=== PATIENT | male | born 1965 | race Caucasian/White ===

== ENCOUNTER 2018-11-22 08:38 | Observation (INO) | payer BC ==
[~2018-11-22] VITALS: Ht 185.4 cm; Wt 128.0 kg
--- OUTSIDE RECORDS SUMMARY | 2018-11-22 08:40 | XMS REPORT | Summary of Care ---
Author Author Julian Carter M.A. Unknown Address [facility] Phone Unavailable Care Team Providers Care Loader Unloader Name Role Phone SHASTA Gilbert, LIAM Unavailable Unavailable TORIN Gilbert, PK Unavailable Unavailable SHASTA GEORGES [place], LIAM CARRILLO Unavailable Unavailable TORIN GEORGES [place], PK Tolbert Unavailable Unavailable Unavailable Unavailable Functional Status Name Dates Details Functional status health issues are not documented Status: Name Dates Details Cognitive status health issues are not documented Status: Problems Name Dates Details Persistent cough (786.2, R05) Status: Active Throat clearing (784.99, R68.89) Status: Active Allergic rhinitis (477.9, J30.9) Status: Active Diet-controlled hyperlipidemia (272.4, E78.5) Status: Active Tobacco use (305.1, Z72.0) Status: Active Myofascial pain syndrome, cervical (729.1, M79.18) Status: Active Nicotine dependence (305.1, F17.200) Status: Active Chewing tobacco use (305.1, Z72.0) Status: Active Acute stress disorder (308.3, F43.0) Status: Active Fatigue (780.79, R53.83) Status: Active Obesity (278.00, E66.9) Status: Active Colon cancer screening (V76.51, Z12.11) Status: Active Colon cancer screening (V76.51, Z12.11) Status: Active Screening for AAA (abdominal aortic aneurysm) (V81.2, Z13.6) Status: Active History of smoking 10-25 pack years (V15.82, Z87.891) Status: Active Pain of right sacroiliac joint (724.6, M53.3) Status: Active Essential hypertension (401.9, I10) Status: Active Hip pain, acute, right (719.45, M25.551) Status: Active Pain in both feet (729.5, M79.671) Status: Active Pain in both lower extremities (729.5, M79.604) Status: Active Primary osteoarthritis of right hip (715.15, M16.11) Status: Active 23-polyvalent pneumococcal polysaccharide vaccine indication of diabetes in patient 6 to 64 years of age (250.00, E11.9) Status: Active Need for pneumococcal vaccination (V03.82, Z23) Status: Active 23-polyvalent pneumococcal polysaccharide vaccine indication of diabetes in patient 6 to 64 years of age (250.00, E11.9) Status: Active Screening for prostate cancer (V76.44, Z12.5) Status: Active Osteoarthritis of knees, bilateral (715.96, M17.0) Status: Active Bilateral knee pain (719.46, M25.561) Status: Active Screening for hypothyroidism (V77.0, Z13.29) Status: Active Need for hepatitis C screening test (V73.89, Z11.59) Status: Active Controlled diabetes mellitus without complication, without long-term current use of insulin (250.00, E11.9) Status: Active Hypertension, well controlled (401.9, I10) Status: Active On statin therapy (V58.69, Z79.899) Status: Active Microscopic hematuria (599.72, R31.29) Status: Active Acute tracheitis (464.10, J04.10) Status: Active Ulcer aphthous oral (528.2, K12.0) Status: Active Acute pharyngitis due to other specified organisms (462, J02.8) Status: Active RAD (reactive airway disease) (493.90, J45.909) Status: Active Hematuria (599.70, R31.9) Status: Active Flu vaccine need (V04.81, Z23) Status: Active Other hyperlipidemia (272.4, E78.49) Status: Active Morbid obesity with BMI of 40.0-44.9, adult (278.01, E66.01) Status: Active Encounter for diabetic foot exam (250.00, E11.9) Status: Active Chronic pain of right hip (719.45, M25.551) Status: Active Limb pain (729.5, M79.609) Status: Active Acute sinusitis (461.9, J01.90) Status: Active Diabetes mellitus (250.00, E11.9) Status: Active Uncontrolled hypertension (401.9, I10) Status: Active Need for influenza vaccination (V04.81, Z23) Status: Active Encounter for monitoring statin therapy (V58.83, Z51.81) Status: Active BMI 40.0-44.9, adult (V85.41, Z68.41) Status: Active At risk for coronary artery disease (V49.89, Z91.89) Status: Active GERD (gastroesophageal reflux disease) (530.81, K21.9) Status: Active Medications Name Dates Details MetFORMIN HCl ER 500 MG Oral Tablet Extended Release 24 Hour TAKE 2 TABLET TWICE DAILY Quantity: 360 LIAM VEGAS M.D. Active Losartan Potassium 100 MG Oral Tablet TAKE ONE TABLET BY MOUTH ONCE DAILY * Quantity: 90 Refills: 2 LIAM VEGAS M.D. * Start : 04-Aug-2018 Active Nasacort Allergy 24HR 55 MCG/ACT Nasal Aerosol 1 SPRAY TO EACH NOSTRIL BID. * Quantity: 1 Refills: 2 LIAM VEGAS M.D. * Start : 21-Dec-2014 Active 16.9 ML Bottle Atorvastatin Calcium 10 MG Oral Tablet TAKE 1 TABLET DAILY. * Quantity: 90 Refills: 2 LIAM VEGAS M.D. * Start : 20-Jul-2015 Active Glimepiride 2 MG Oral Tablet take one tablet twice a day * Quantity: 180 Refills: 2 LIAM VEGAS M.D. * Start : 20-Jul-2015 Active Gabapentin 300 MG Oral Capsule TAKE 1 CAPSULE 3 TIMES DAILY * Quantity: 270 Refills: 1 LIAM VEGAS M.D. * Start : 15-Sep-2016 Active Ventolin HFA 108 (90 Base) MCG/ACT Inhalation Aerosol Solution 2 INHALATIONS FOUR TIMES A DAY UNTIL WELL * Quantity: 1 Refills: 1 LIAM VEGAS M.D. * Start : 13-Oct-2017 Active 8 GM Inhaler AmLODIPine Besylate 2.5 MG Oral Tablet TAKE 1 TABLET DAILY * Quantity: 30 Refills: 3 ZOILA VEGAS M.D.NDA * Start : 16-Aug-2018 Active Naproxen 500 MG Oral Tablet TAKE 1 TABLET TWICE DAILY AFTER MEALS. * Quantity: 60 Refills: 1 LIAM VEGAS M.D. * Start : 19-Aug-2018 Active Esomeprazole Magnesium 40 MG Oral Capsule Delayed Release TAKE 1 CAPSULE BY MOUTH DAILY * Quantity: 30 Refills: 2 LIAM VEGAS M.D. * Start : 19-Aug-2018 Active Vimovo 500-20 MG Oral Tablet Delayed Release TAKE 1 TABLET TWICE DAILY * Refills: 0 * Start : 31-Aug-2018 Active Allergies and Adverse Reactions Name Dates Details No Known Drug Allergies (Allergy) Status: Active Past Medical History Name Dates Details History of Basal Cell Carcinoma Of Skin, Other Specified Location (173.81) Status: Resolved History of essential hypertension (V12.59, Z86.79) Status: Resolved History of Skin Cancer (V10.83) Status: Resolved History of type 2 diabetes mellitus (V12.29, Z86.39) Status: Resolved Procedures Procedure Dates Details History of Hernia Repair Completed History of Knee Surgery Right Completed Immunization Name Dates Details Tdap on: 08-Apr-2012 Influenza on: 25-Oct-2012 Fluzone INJ Lot #: [id number] on: 22-Jul-2013 Fluzone Quadrivalent 0.5 ML Intramuscular Suspension Lot #: [id number] on: 20-Jul-2015 Fluzone Quadrivalent 0.5 ML Intramuscular Suspension Lot #: [id number] on: 28-Jul-2016 Pneumococcal polysaccharide vaccine, 23 valent Lot #: [id number] on: 19-Dec-2016 Fluzone Quadrivalent 0.5 ML Intramuscular Suspension Lot #: [id number] on: 18-Sep-2017 Fluzone Quadrivalent 0.5 ML Intramuscular Suspension Lot #: [id number] on: 16-Aug-2018 Family History Name Dates Details Family history of Diabetes Mellitus (V18.0) Status: Active Family history of Hyperlipidemia Status: Active Name Dates Details Family history of Lung Cancer (V16.1) Status: Active Social History Name Dates Details - Status: Name Dates Details Former smoker Vital Signs Date Test Result Details [id number] Height 73 in Status: Weight 294 lb Status: Body Mass Index Calculated 38.79 kg/m2 Status: Body Surface Area Calculated 2.53 m2 Status: Results Date Description Value Details Results not documented Plan of Care Name Dates Details Planned Observations Planned Goals not documented Instructions Name Dates Details Instructions not documented Encounters Appointment; LIAM VEGAS M.D. Encounter Diagnosis: Problem not documented On: 19-Dec-2016 15:45 Appointment; LIAM VEGAS M.D. Encounter Diagnosis: Problem not documented On: 19-Dec-2016 15:45 Appointment; LIAM VEGAS M.D. Encounter Diagnosis: Problem not documented On: 18-Sep-2017 11:00 Appointment; LIAM VEGAS M.D. Encounter Diagnosis: Problem not documented On: 13-Oct-2017 10:00 Appointment; PK HARKINS M.D. Encounter Diagnosis: Problem not documented On: 23-Dec-2017 8:45 Appointment; PK HARKINS M.D. Encounter Diagnosis: Problem not documented On: 20-Jan-2018 9:30 Appointment; STEF PACE P.A. Encounter Diagnosis: Problem not documented On: 12-Mar-2018 15:00 Appointment; LIAM VEGAS M.D. Encounter Diagnosis: Problem not documented On: 16-Aug-2018 15:45 Appointment; PK HARKINS M.D. Encounter Diagnosis: Problem not documented On: 20-Oct-2018 13:00
[2018-11-22] MEDS ORDERED: SODIUM CHLORIDE 0.9% 1000ML 1,000 ML IV STA (09:03)
[2018-11-22] MEDS ORDERED: SODIUM CHLORIDE 0.9% 1000ML 1,000 ML ONE (09:05)
[2018-11-22] MEDS ORDERED: SODIUM CHLORIDE 0.9% 250ML 250 ML IV ONE (09:15)
[2018-11-22 09:46] LABS: BASOPHILS # (AUTO) 0.1 (0.0-0.1); EOSINOPHILS # (AUTO) 0.2 (0.0-0.4); EOSINOPHILS % 1.9 % (0.0-6.0); HEMATOCRIT 37.2 % (38.2-49.6); HEMOGLOBIN 13.3 g/dL (14.0-18.0); LYMPHOCYTES # (AUTO) 1.6 (1.0-3.2); LYMPHOCYTES % 13.4 % (18.0-39.1); MEAN CORPUSCULAR HEMOGLOBIN 31.4 pg (28-32); MEAN CORPUSCULAR HGB CONC 35.8 g/dL (31-35); MEAN CORPUSCULAR VOLUME 87.9 fL (81-99); MONOCYTES # (AUTO) 0.7 (0.2-0.8); MONOCYTES % 5.5 % (4.4-11.3); NEUTROPHILS # (AUTO) 9.3 (2.1-6.9); NEUTROPHILS % 77.9 % (38.7-80.0); PLATELET COUNT 321 x10e3/uL (140-360); RED BLOOD COUNT 4.23 x10e6/uL (4.3-5.7); RED CELL DISTRIBUTION WIDTH 12.9 % (11.7-14.4)
[2018-11-22 09:59] LABS: INR 1.04; PARTIAL THROMBOPLASTIN TIME 27.7 seconds (23.8-35.5); PROTHROMBIN TIME 14.5 seconds (11.9-14.5)
[2018-11-22 10:05] LABS: ALANINE AMINOTRANSFERASE 46 IU/L (0-55); ALBUMIN 4.2 g/dL (3.5-5.0); ALBUMIN/GLOBULIN RATIO 1.4 (0.8-2.0); ALKALINE PHOSPHATASE 64 IU/L (40-150); ANION GAP 17.9 mmol/L (8-16); BLOOD UREA NITROGEN 22 mg/dL (7-26); BUN/CREATININE RATIO 20 (6-25); CALCIUM 9.5 mg/dL (8.4-10.2); CARBON DIOXIDE 25 mmol/L (22-29); CHLORIDE 96 mmol/L (98-107); CREATINE KINASE 153 IU/L (30-200); CREATININE, SERUM 1.11 mg/dL (0.72-1.25); EST GLOMERULAR FILTRATION RATE > 60 ML/MIN (60-); GLUCOSE 171 mg/dL (74-118); POTASSIUM 3.9 mmol/L (3.5-5.1); SODIUM 135 mmol/L (136-145)
--- NOTE | 2018-11-22 10:12 | NUR ---
PT EATING CHIC FILET WHEN NURSE ENTERED ROOM; PT EDUCATED ABOUT NOT EATING UNTIL RESULTS OF ALL LABS RETURN AND CLEARS HIM TO DO SO
[2018-11-22] MEDS ORDERED: PANTOPRAZOLE 40 MG 10ML VIAL IV ONE (10:15)
[2018-11-22 12:48] VITALS: BP 123/66
--- NOTE | 2018-11-22 13:20 | NUR ---
Recvd patient from ER, AAOx3, assisted him to bed, denies any pain, as per patient he didn't have bloody diarrhoea now, not in any distress, as per ER nurse report Dr Stack aware about the consult
[2018-11-22] MEDS: SODIUM CHLORIDE 0.9% 1000ML 1,000 ML IV SCH ×2 (13:25→22:13)
[2018-11-22] MEDS ORDERED: ATORVASTATIN CA10 MG PO (14:56)
[2018-11-22] MEDS ORDERED: LOSARTAN POTAS100 MG PO (14:56)
[2018-11-22] MEDS ORDERED: GLIMEPIRIDE2 MG PO (14:56)
[2018-11-22] MEDS ORDERED: METFORMIN HCL1000 MG PO (14:56)
[2018-11-22 15:10] VITALS: BP 123/66
[2018-11-22 15:35] VITALS: BP 131/72
[2018-11-22 18:37] LABS: HEMOGLOBIN 9.9 g/dL (14.0-18.0)
[2018-11-22 20:00] VITALS: BP 117/64
--- NOTE | 2018-11-22 20:03 | NUR ---
Report was taken from previous nurse. Patient is NPO.
--- NOTE | 2018-11-22 21:00 | NUR ---
Patient refused bed alarm.
--- NOTE | 2018-11-22 21:30 | NUR ---
Talked to Dr. Humphrey about patient having hip pain and wanting medication. Dr. Humphrey ordered [place] for the pain.
[2018-11-22] MEDS: HYDROCODONE/APAP 5MG-325MG TAB PO SCH (22:04)
[2018-11-23] VITALS (8 sets, daily range): BP systolic 103–135; BP diastolic 56–73
[2018-11-23 01:20] LABS: HEMATOCRIT 29.8 % (38.2-49.6); HEMOGLOBIN 10.5 g/dL (14.0-18.0)
--- NOTE | 2018-11-23 02:32 | NUR ---
PATIENT IS ASLEEP. CALL HERRERA WITHIN REACH.
[2018-11-23 05:35] LABS: HEMATOCRIT 27.2 % (38.2-49.6); HEMOGLOBIN 9.4 g/dL (14.0-18.0)
[2018-11-23 05:51] LABS: ANION GAP 10.2 mmol/L (8-16); BLOOD UREA NITROGEN 15 mg/dL (7-26); BUN/CREATININE RATIO 18 (6-25); CALCIUM 8.2 mg/dL (8.4-10.2); CARBON DIOXIDE 28 mmol/L (22-29); CHLORIDE 102 mmol/L (98-107); CREATININE, SERUM 0.82 mg/dL (0.72-1.25); EST GLOMERULAR FILTRATION RATE > 60 ML/MIN (60-); GLUCOSE 104 mg/dL (74-118); POTASSIUM 4.2 mmol/L (3.5-5.1); SODIUM 136 mmol/L (136-145)
[2018-11-23] MEDS: SODIUM CHLORIDE 0.9% 1000ML 1,000 ML IV SCH ×2 (06:04→14:39)
[2018-11-23] MEDS: HYDROCODONE/APAP 5MG-325MG TAB PO SCH ×4 (06:13→20:01)
--- NOTE | 2018-11-23 08:12 | NUR ---
patient resting in bed, denies any pain, as per patient no more bloody stool he have
--- NOTE | 2018-11-23 08:30 | NUR ---
Call placed and reminded Dr Stack regarding the consult, she said Dr Yarbrough is covering dr will see patient
[2018-11-23] MEDS: PANTOPRAZOLE 40 MG 10ML VIAL IV SCH (09:05)
[2018-11-23 11:11] LABS: HEMATOCRIT 27.7 % (38.2-49.6); HEMOGLOBIN 9.5 g/dL (14.0-18.0)
--- NOTE | 2018-11-23 12:41 | NUR ---
SOCIAL WORK INITIAL ASSESSMENT [employer] to bedside to discuss plan of care with patient/family. CM/SW role and care transitions discussed. Anticipated discharge plan discussed along with duration of care. CM/SW discussed patients right to make decisions in care. CM/SW work hours given. Patient lives: IN HOUSE BY SELF Admit/Transfer: VIA ED POA/Emergency contact: BROTHER SULMA [phone] Current/Previous Home Health: NONE PCP/Follow-up Care: SHASTA Current/Previous DME: [facility] ABOUT TO HAVE KNEE SURGERY Other Services: NONE Employment Status: [employer] Areas of Concerns: NONE Referral Needs: NONE Education Needs: NONE IMM/FAIRCHILD given and signed (if applicable): NA Goal for discharge: RETURN HOME CM/SW left business card at the bedside with contact information. Name and number was also written on the patients whiteboard. Patient verbalized understanding of discussion. CM will follow-up with ongoing discharge and transition of care needs.
[2018-11-23] MEDS ORDERED: PEG (High)/E-LYTE SOLN 4,000 ML BTL PO NR (14:00)
--- NOTE | 2018-11-23 14:20 | NUR ---
Visit made by the Spiritual Care Department Pastoral Visitor, Britta Christy. PV provided pastoral presence, prayer, hospitality, and supportive listening. Pastoral Visitor informed pt/family of the scope of [employer] Services and availability. [facility] [employer] Spiritual Care Department O: [phone] Pager: [phone] ([phone] number calling from)
--- NOTE | 2018-11-23 15:09 | Consultation ---
DATE OF CONSULTATION: REFERRING PHYSICIAN: Rayshawn Humphrey MD REASON FOR CONSULTATION: Rectal bleeding. HISTORY OF PRESENT ILLNESS: Mr. Giles is a very pleasant 53-year-old man who comes with painless rectal bleeding. It started on Thursday and overnight Thursday. He had 3 episodes. The last episode was very little as it was diminishing and the bleeding was stopping. It was bright red blood and was with some clot material. He had recently been on some pain medications which caused constipation and rectal discomfort. His last colonoscopy was within the past 2 years, and he was recommended to have a 5-year followup. He is no longer bleeding and is feeling well. He denies any abdominal pain. He has not had any melena. He has had no dysphagia, odynophagia, early satiety, nausea or vomiting. He is hungry and would like to eat. He is interested in going home. PAST MEDICAL HISTORY: Hypertension, diabetes, dyslipidemia. Hip surgery recently. MEDICATIONS: Reviewed. Please see MAR and medication reconciliation form. Of note he has had NSAIDs. ALLERGIES: NO KNOWN DRUG ALLERGIES. FAMILY HISTORY: Noncontributory but reviewed. No GI issues. SOCIAL HISTORY: No significant alcohol. REVIEW OF SYSTEMS: A 12-system review is positive for that mentioned in HPI, otherwise unremarkable. PHYSICAL EXAMINATION GENERAL: Pleasant, alert, oriented, in no acute distress. HEENT: Pupils are equal, round and reactive to light. NECK: Supple. LUNGS: Clear. CARDIOVASCULAR: S1 and S2. ABDOMEN: Soft, nontender, nondistended with normal bowel sounds. EXTREMITIES: No clubbing, cyanosis or edema. PSYCH: Calm, cooperative. NEUROLOGIC: Nonfocal. HEM-ONC: No bruising or adenopathy. The electronic health record is reviewed for laboratory and radiologic studies as well as history. ASSESSMENT: Lower gastrointestinal bleed: It sounds more anorectal given the recent constipation and rectal discomfort. It is probably hemorrhoidal. Less likely to be anything else like a diverticular bleed. He has recently had a colonoscopy. Clinical history is not consistent with an upper GI bleed although he has been on NSAIDs. He is feeling well, is hungry and would like to go home. I did offer him to do a flexible sigmoidoscopy today to evaluate the source of the blood loss. However, given his recent colonoscopy and the fact that the bleeding has stopped, he would like to defer at this time. If he has more bleeding he will reconsider and possibly have full colonoscopy tomorrow. Thank you very much for asking us to see Mr. Giles. Any questions or concerns, please do not hesitate to contact me. Will put a prescription for hydrocortisone suppositories in the chart. From a GI perspective, he can go home if no further bleeding in next bowel movement. This was discussed with the nursing staff. Job#: [id number] BENJAMIN SUGGS
[2018-11-23 18:26] LABS: HEMOGLOBIN 9.7 g/dL (14.0-18.0)
--- NOTE | 2018-11-23 19:45 | NUR ---
RECEIVED REPORT ABOUT PATIENT. PATIENT HAD TWO LIQUID BROWN STOOLS. HE HAD A FEW BROWN LIQUID STAINS ON BED SHEET AND SHEETS WERE CHANGED.
--- NOTE | 2018-11-23 20:03 | NUR ---
PATIENT FINISHED COLYTE AND HAS CLEAR LIQUID DIARRHEA.
--- NOTE | 2018-11-23 21:35 | NUR ---
PATIENT REFUSED BED ALARM TO BE ON. CHARGE NURSE WAS TOLD THAT PATIENT REFUSED THE BED ALARM. PATIENT WAS TOLD TO CALL BEFORE GETTING UP. CALL HERRERA WITHIN REACH.
[2018-11-24] VITALS: BP 131/61
[2018-11-24] MEDS: HYDROCODONE/APAP 5MG-325MG TAB PO SCH ×2 (03:43→06:00)
[2018-11-24 04:00] VITALS: BP 104/52
[2018-11-24] MEDS: SODIUM CHLORIDE 0.9% 1000ML 1,000 ML IV SCH ×2 (04:14→07:06)
[2018-11-24 05:26] LABS: BASOPHILS # (AUTO) 0.1 (0.0-0.1); BASOPHILS % 1.7 % (0.0-1.0); EOSINOPHILS # (AUTO) 0.2 (0.0-0.4); EOSINOPHILS % 5.2 % (0.0-6.0); HEMATOCRIT 27.1 % (38.2-49.6); HEMOGLOBIN 9.2 g/dL (14.0-18.0); LYMPHOCYTES # (AUTO) 1.9 (1.0-3.2); LYMPHOCYTES % 45.5 % (18.0-39.1); MEAN CORPUSCULAR HEMOGLOBIN 30.9 pg (28-32); MEAN CORPUSCULAR HGB CONC 33.9 g/dL (31-35); MEAN CORPUSCULAR VOLUME 90.9 fL (81-99); MONOCYTES # (AUTO) 0.5 (0.2-0.8); MONOCYTES % 11.3 % (4.4-11.3); NEUTROPHILS # (AUTO) 1.5 (2.1-6.9); NEUTROPHILS % 36.1 % (38.7-80.0); PLATELET COUNT 198 x10e3/uL (140-360); RED BLOOD COUNT 2.98 x10e6/uL (4.3-5.7); RED CELL DISTRIBUTION WIDTH 12.9 % (11.7-14.4)
[2018-11-24 05:50] LABS: ANION GAP 9.7 mmol/L (8-16); BLOOD UREA NITROGEN 8 mg/dL (7-26); BUN/CREATININE RATIO 9 (6-25); CALCIUM 8.3 mg/dL (8.4-10.2); CARBON DIOXIDE 28 mmol/L (22-29); CHLORIDE 105 mmol/L (98-107); CREATININE, SERUM 0.87 mg/dL (0.72-1.25); EST GLOMERULAR FILTRATION RATE > 60 ML/MIN (60-); GLUCOSE 115 mg/dL (74-118); POTASSIUM 3.7 mmol/L (3.5-5.1); SODIUM 139 mmol/L (136-145)
--- NOTE | 2018-11-24 06:02 | NUR ---
PATIENT IS RESTING IN BED. NO PAIN OR DISTRESS. CALL HERRERA WITHIN REACH.
--- NOTE | 2018-11-24 06:57 | NUR ---
patient lying in bed. report given to oncoming nurse. no pain or distress. call armenta within reach.
--- NOTE | 2018-11-24 07:40 | NUR ---
Patient up to shower per request, informed planned procedure is scheduled for 0900.
[2018-11-24 08:00] VITALS: BP 136/63
--- NOTE | 2018-11-24 10:20 | NUR ---
Received from PACU, pt alert and oriented x3. Up to bathroom, tolerated well. No complaints or concerns at this time.
[2018-11-24 10:24] VITALS: BP 135/93
--- NOTE | 2018-11-24 11:30 | NUR ---
Spoke to Dr. Rios (covering Dr. Humphrey) patient may be discharged home if okay with Dr. Stack. Dr. Stack paged.
--- NOTE | 2018-11-24 11:50 | NUR ---
Spoke to Dr. Stack, per MD patient may be discharged home today. He will need to follow up in office in 3 weeks.
[2018-11-24] MEDS: PANTOPRAZOLE 40 MG 10ML VIAL IV SCH (12:00)
[2018-11-24 12:21] VITALS: BP 121/79
--- NOTE | 2018-11-24 12:34 | NUR ---
POST DISCHARGE STATUS FORM FILED IN FRONT OF CHART, PT RETURNING HOME NO NEEDS
[2018-11-24] MEDS ORDERED: PROPOFOL IV EMULSION 10 MG/ML 20 ML VIAL ONE (17:40)
[2018-11-24] MEDS ORDERED: MIDAZOLAM HCL 2 MG/2 ML VIAL ONE (18:05)
[2018-11-24] MEDS ORDERED: FENTANYL CITRATE/PF 100MCG/2 ML INJ ONE (18:05)
== END 2018-11-24 12:56 | disposition home or self-care (01) ==
LOC: ER 08:38 → ERHOLD 12:14 → IMCU 12:41
PROVIDERS: ADMIT Internal Medicine; ATTEND Internal Medicine
DX: K62.5 Hemorrhage of anus and rectum (principal); I10 Essential (primary) hypertension; E11.9 Type 2 diabetes mellitus without complications; M19.91 Primary osteoarthritis, unspecified site; Z79.1 Long term (current) use of non-steroidal anti-inflammatories (NSAID)
CPT/HCPCS: 36415 ×3; 45382; 45384; 80048 ×2; 80053; 82550; 82553; 82948 ×2; 84484; 85014 ×2; 85018 ×2; 85025 ×2; 85610; 85730; 86850; 86900; 86920; 88305; 93005; 96360; 96361; 99284; C9113 ×3; G0378 ×3; J2250; J2704; J7030 ×3; 44391

== ENCOUNTER 2019-01-31 05:30 | Inpatient (IN) | payer BC ==
[2019-01-28 09:45] LABS: BASOPHILS # (AUTO) 0.1 (0.0-0.1); BASOPHILS % 1.6 % (0.0-1.0); EOSINOPHILS # (AUTO) 0.2 (0.0-0.4); EOSINOPHILS % 3.9 % (0.0-6.0); HEMOGLOBIN 14.4 g/dL (14.0-18.0); LYMPHOCYTES # (AUTO) 1.7 (1.0-3.2); LYMPHOCYTES % 26.7 % (18.0-39.1); MEAN CORPUSCULAR HEMOGLOBIN 29.6 pg (28-32); MEAN CORPUSCULAR HGB CONC 33.5 g/dL (31-35); MEAN CORPUSCULAR VOLUME 88.3 fL (81-99); MONOCYTES # (AUTO) 0.5 (0.2-0.8); MONOCYTES % 7.6 % (4.4-11.3); NEUTROPHILS # (AUTO) 3.7 (2.1-6.9); PLATELET COUNT 265 x10e3/uL (140-360); RED BLOOD COUNT 4.87 x10e6/uL (4.3-5.7); RED CELL DISTRIBUTION WIDTH 12.2 % (11.7-14.4)
[2019-01-28 09:56] LABS: ANION GAP 12.2 mmol/L (8-16); BLOOD UREA NITROGEN 16 mg/dL (7-26); BUN/CREATININE RATIO 18 (6-25); CALCIUM 9.4 mg/dL (8.4-10.2); CARBON DIOXIDE 27 mmol/L (22-29); CHLORIDE 103 mmol/L (98-107); CREATININE, SERUM 0.87 mg/dL (0.72-1.25); EST GLOMERULAR FILTRATION RATE > 60 ML/MIN (60-); GLUCOSE 95 mg/dL (74-118); POTASSIUM 4.2 mmol/L (3.5-5.1); SODIUM 138 mmol/L (136-145)
[~2019-01-31] VITALS: Ht 185.4 cm; Wt 127.9 kg
[~2019-01-31 05:30] MED LIST: ATORVASTATIN CA10 MG PO; GABAPENTIN300 MG PO; GLIMEPIRIDE2 MG PO; LOSARTAN POTAS100 MG PO; METFORMIN HCL1000 MG PO; NAPROXEN250 MG PO; OMEPRAZOLE40 MG PO; ULTRAM50 MG PO; VITAMIN B-121000 MCG PO; VITAMIN D3400 UNIT PO
--- OUTSIDE RECORDS SUMMARY | 2019-01-31 05:33 | XMS REPORT | Continuity of Care Document ---
Author Author [facility] Interface Address Unknown Phone Unavailable Problems Problem Status Onset Date Classification Date Reported Comments Source Medications Medication Details Route Status Patient Instructions Ordering Provider Order Date Source Atorvastatin Calcium 10 Mg Tablet Today At 9:00PM Active [facility] Glimepiride 2 Mg Tablet Daily Active [facility] Losartan Potassium 100 Mg Tablet Daily Active [facility] Metformin Hcl 1,000 Mg Tablet Twice A Day [facility] Allergies, Adverse Reactions, Alerts Substance Category Reaction Severity Reaction type Status Date Reported Comments Source Immunizations Immunization Date Given Site Status Last Updated Comments Source Results Order Name Results Value Reference Range Date Interpretation Comments Source Blood leukocytes automated count (number/volume) 4.07 4.8 - 10.8 11/24/2018 [facility] Blood erythrocytes automated count (number/volume) 2.98 4.3 - 5.7 11/24/2018 [facility] Blood hemoglobin measurement (moles/volume) 9.2 14.0 - 18.0 11/24/2018 [facility] Automated blood hematocrit (volume fraction) 27.1 38.2 - 49.6 11/24/2018 [facility] Automated erythrocyte mean corpuscular volume 90.9 81 - 99 11/24/2018 [facility] Automated erythrocyte mean corpuscular hemoglobin (mass per erythrocyte) 30.9 28 - 32 11/24/2018 [facility] Automated erythrocyte mean corpuscular hemoglobin concentration measurement (mass/volume) 33.9 31 - 35 11/24/2018 [facility] RDW BldCo-Rto 12.9 11.7 - 14.4 11/24/2018 [facility] Automated blood platelet count (count/volume) 198 140 - 360 11/24/2018 [facility] Automated blood segmented neutrophil count as percentage of total leukocytes 36.1 38.7 - 80.0 11/24/2018 [facility] Automated blood lymphocyte count as percentage ot total leukocytes 45.5 18.0 - 39.1 11/24/2018 [facility] Automated blood monocyte count as percentage of total leukocytes 11.3 4.4 - 11.3 11/24/2018 [facility] Automated blood eosinophil count as percentage of total leukocytes 5.2 0.0 - 6.0 11/24/2018 [facility] Automated blood basophil count as percentage of total leukocytes 1.7 0.0 - 1.0 11/24/2018 [facility] IM GRANULOCYTES % 0.2 0.0 - 1.0 11/24/2018 [facility] Automated blood neutrophil count 1.5 2.1 - 6.9 11/24/2018 [facility] Blood lymphocytes count (number/volume) 1.9 1.0 - 3.2 11/24/2018 [facility] Blood monocytes automated count (number/volume) 0.5 0.2 - 0.8 11/24/2018 [facility] Automated blood eosinophil count 0.2 0.0 - 0.4 11/24/2018 [facility] Automated blood basophil count (count/volume) 0.1 0.0 - 0.1 11/24/2018 [facility] Absolute Immature Granulocyte (auto 0.01 0 - 0.1 11/24/2018 [facility] Serum or plasma sodium measurement (moles/volume) 139 136 - 145 11/24/2018 [facility] Serum or plasma potassium measurement (moles/volume) 3.7 3.5 - 5.1 11/24/2018 [facility] Serum or plasma chloride measurement (moles/volume) 105 98 - 107 11/24/2018 [facility] Serum or plasma carbon dioxide, total measurement (moles/volume) 28 22 - 29 11/24/2018 [facility] Serum or plasma anion gap 9.7 8 - 16 11/24/2018 [facility] Serum or plasma urea nitrogen measurement (mass/volume) 8 7 - 26 11/24/2018 [facility] Serum or plasma creatinine measurement (mass/volume) 0.87 0.72 - 1.25 11/24/2018 [facility] Serum or plasma urea nitrogen/creatinine mass ratio 9 6 - 25 11/24/2018 [facility] Estimated glomerular filtration rate (GFR) determination > 60 60 11/24/2018 [facility] Glucose measurement 115 74 - 118 11/24/2018 [facility] Serum or plasma calcium measurement (mass/volume) 8.3 8.4 - 10.2 11/24/2018 [facility] Serum or plasma total bilirubin measurement (mass/volume) 1.2 0.2 - 1.2 11/22/2018 [facility] Aspartate Amino Transf (AST/SGOT) 28 5 - 34 11/22/2018 [facility] Serum or plasma alanine aminotransferase measurement (enzymatic activity/volume) 46 0 - 55 11/22/2018 [facility] Serum or plasma protein measurement (mass/volume) 7.3 6.5 - 8.1 11/22/2018 [facility] Serum or plasma albumin measurement (mass/volume) 4.2 3.5 - 5.0 11/22/2018 [facility] Plasma globulin measurement (mass/volume) 3.1 2.3 - 3.5 11/22/2018 [facility] Serum or plasma albumin/globulin mass ratio 1.4 0.8 - 2.0 11/22/2018 [facility] Serum or plasma alkaline phosphatase measurement (enzymatic activity/volume) 64 40 - 150 11/22/2018 [facility] Serum or plasma creatine kinase measurement (enzymatic activity/volume) 153 30 - 200 11/22/2018 [facility] Serum or plasma creatine kinase MB measurement (mass/volume) 2.90 0 - 5.0 11/22/2018 [facility] Troponin I measurement by highly sensitive enzyme immunoassay 0.010 0 - 0.300 11/22/2018 [facility] Prothrombin time (PT) in platelet poor plasma by coagulation assay 14.5 11.9 - 14.5 11/22/2018 [facility] INR in Platelet poor plasma by Coagulation assay 1.04 11/22/2018 [facility] Activated partial thromboplastin time (aPTT) in platelet poor plasma bycoagulation assay 27.7 23.8 - 35.5 11/22/2018 [facility] Capillary blood glucose measurement by glucometer (mass/volume) 210 70 - 120 11/22/2018 [facility] Vital Signs Vital Sign Value Date Comments Source Encounters Location Location Details Encounter Type Encounter Number Reason For Visit Attending Provider ADM Date DC Date Status Source Discharged Inpatient (obs) [id number] ROBERTH ESPINOSA MD 11/22/2018 11/24/2018 [facility] Procedures Procedure Code Date Perfomer Comments Source Colonoscopy with polypectomy [id number] 11/24/2018 [facility] Colonoscopy with biopsy [id number] 11/24/2018 [facility]
--- OUTSIDE RECORDS SUMMARY | 2019-01-31 05:33 | XMS REPORT | Summary of Care ---
Author Author Joy Kaur R.N. Unknown Address Unknown Phone Unavailable Care Team Providers Care Cloth Bin Packer Name Role Phone LIAM VEGAS M.D. Unavailable Joy Kaur R.N. Unavailable Unavailable SHASTA GEORGES [place], LIAM CARRILLO Unavailable Unavailable TORIN GEORGES [place], PK Tolbert Unavailable Unavailable Oliver GEORGES, Armani Unavailable Unavailable Unavailable Unavailable Functional Status Name [...] Colon cancer screening (V76.51, Z12.11) Status: Active History of smoking 10-25 pack years (V15.82, Z87.891) Status: Active Pain of right sacroiliac joint (724.6, M53.3) Status: Active Hip pain, acute, right (719.45, M25.551) Status: Active Pain in both feet (729.5, M79.671) Status: Active Pain in both lower extremities (729.5, M79.604) Status: Active 23-polyvalent pneumococcal polysaccharide vaccine indication of diabetes in patient 6 to 64 years of age (250.00, E11.9) Status: Active Need for pneumococcal vaccination (V03.82, Z23) Status: Active 23-polyvalent pneumococcal polysaccharide vaccine indication of diabetes in patient 6 to 64 years of age (250.00, E11.9) Status: Active Osteoarthritis of knees, bilateral (715.96, M17.0) Status: Active Bilateral knee pain (719.46, M25.561) Status: Active Screening for hypothyroidism (V77.0, Z13.29) Status: Active Need for hepatitis C screening test (V73.89, Z11.59) Status: Active On statin therapy (V58.69, Z79.899) Status: Active Microscopic hematuria (599.72, R31.29) Status: Active Acute tracheitis (464.10, J04.10) Status: Active Ulcer aphthous oral (528.2, K12.0) Status: Active Acute pharyngitis due to other specified organisms (462, J02.8) Status: Active RAD (reactive airway disease) (493.90, J45.909) Status: Active Hematuria (599.70, R31.9) Status: Active Flu vaccine need (V04.81, Z23) Status: Active Chronic pain of right hip (719.45, M25.551) Status: Active Limb pain (729.5, M79.609) Status: Active Acute sinusitis (461.9, J01.90) Status: Active Diabetes mellitus (250.00, E11.9) Status: Active Pre-op exam (V72.84, Z01.818) Status: Active BMI 40.0-44.9, adult (V85.41, Z68.41) Status: Active Screening for AAA (abdominal aortic aneurysm) (V81.2, Z13.6) Status: Active Screening for prostate cancer (V76.44, Z12.5) Status: Active Multiple risk factors for coronary artery disease (V15.89, Z91.89) Status: Active Encounter for diabetic foot exam (250.00, E11.9) Status: Active Encounter for monitoring statin therapy (V58.83, Z51.81) Status: Active GERD (gastroesophageal reflux disease) (530.81, K21.9) Status: Active Need for influenza vaccination (V04.81, Z23) Status: Active Uncontrolled hypertension (401.9, I10) Status: Active At risk for coronary artery disease (V49.89, Z91.89) Status: Active Morbid obesity with BMI of 40.0-44.9, adult (278.01, E66.01) Status: Active SOB (shortness of breath) on exertion (786.05, R06.02) Status: Active Pre-operative clearance (V72.84, Z01.818) Status: Active Other hyperlipidemia (272.4, E78.49) Status: Active Obesity, Class II, BMI 35-39.9 (278.00, E66.9) Status: Active Primary osteoarthritis of right hip (715.15, M16.11) Status: Active Essential hypertension (401.9, I10) Status: Active Controlled diabetes mellitus without complication, without long-term current use of insulin (250.00, E11.9) Status: Active Depression screening negative (V79.0, Z13.31) Status: Active Nasal vestibulitis (478.19, J34.89) Status: Active Medications Name Dates Details metFORMIN HCl ER 500 MG Oral Tablet Extended Release 24 Hour TAKE 2 TABLET TWICE DAILY Quantity: 360 LIAM VEGAS M.D. Active Losartan Potassium 100 MG Oral Tablet TAKE ONE TABLET BY MOUTH ONCE DAILY * Quantity: 90 Refills: 2 LIAM VEGAS M.D. * Start : 04-Aug-2018 Active Atorvastatin Calcium 10 MG Oral Tablet TAKE 1 TABLET DAILY. * Quantity: 90 Refills: 2 LIAM VEGAS M.D. * Start : 20-Jul-2015 Active Glimepiride 2 MG Oral Tablet take half tablet twice a day * Refills: 0 ZOILA VEGAS M.D.NDA * Start : 20-Jul-2015 Active Gabapentin 300 MG Oral Capsule TAKE 1 CAPSULE 3 TIMES DAILY * Quantity: 270 Refills: 1 LAIM VEGAS M.D. * Start : 15-Sep-2016 Active Naproxen 500 MG Oral Tablet TAKE ONE TABLET TWICE DAILY WITH FOOD ONLY IF NEEDED * Quantity: 60 Refills: 0 ZOILA VEGAS M.D.NDA * Start : 11-Jan-2019 Active Esomeprazole Magnesium 40 MG Oral Capsule Delayed Release TAKE 1 CAPSULE BY MOUTH DAILY * Quantity: 30 Refills: 2 SHASTA Gilbert, LIAM * Start : 19-Aug-2018 Active Cefuroxime Axetil 250 MG Oral Tablet TAKE 1 TABLET TWICE DAILY * Quantity: 10 Refills: 0 SHASTA Gilbert, LIAM * Start : 26-Jan-2019 Active Allergies and Adverse Reactions Name Dates Details No Known Drug Allergies (Allergy) Status: Active Past Medical History Name Dates Details History of Basal Cell Carcinoma Of Skin, Other Specified Location (173.81) Status: Resolved History of essential hypertension (V12.59, Z86.79) Status: Resolved History of Skin Cancer (V10.83) Status: Resolved History of type 2 diabetes mellitus (V12.29, Z86.39) Status: Resolved Procedures Procedure Dates Details [N] 2D Echo complete, with Doppler [id number] Date: 01-Dec-2018 History of Hernia Repair Completed History of Knee Surgery Right Completed Immunization Name Dates Details Tdap on: 08-Apr-2012 Influenza on: 25-Oct-2012 Fluzone INJ Lot #: [id number] on: 22-Jul-2013 Fluzone Quadrivalent 0.5 ML Intramuscular Suspension Lot #: [id number] on: 20-Jul-2015 Fluzone Quadrivalent 0.5 ML Intramuscular Suspension Lot #: [id number] on: 28-Jul-2016 Pneumococcal polysaccharide vaccine, 23 valent Lot #: [id number] on: 19-Dec-2016 Fluzone Quadrivalent 0.5 ML Intramuscular Suspension Lot #: [id number] on: 18-Sep-2017 Fluzone Quadrivalent 0.5 ML Intramuscular Suspension Lot #: [id number] on: 16-Aug-2018 Family History Name Dates Details Family history of Diabetes Mellitus (V18.0) Status: Active Family history of Hyperlipidemia Status: Active Family history of diabetes mellitus (V18.0, Z83.3) Status: Active Family history of pancreatic cancer (V16.0, Z80.0) Status: Active Name Dates Details Family history of Lung Cancer (V16.1) Status: Active Family history of throat cancer (V16.0, Z80.0) Status: Active Social History Name Dates Details - Status: Name Dates Details Former smoker Current some day smoker Vital Signs Date Test Result Details No Known Vitals to report Results Date Description Value Details Results not [...] Diagnosis: Problem not documented On: 20-Oct-2018 13:00 Appointment; ARMANI JONES M.D. Encounter Diagnosis: Problem not documented On: 01-Dec-2018 14:40 Appointment; LIAM VEGAS M.D. Encounter Diagnosis: Problem not documented On: 13-Dec-2018 10:30 Appointment; [facility] Encounter Diagnosis: Problem not documented On: 15-Dec-2018 8:00 Appointment; [facility] ECHO Encounter Diagnosis: Problem not documented On: 15-Dec-2018 10:00 Appointment; ARMANI JONES M.D. Encounter Diagnosis: Problem not documented On: 15-Dec-2018 13:20
[2019-01-31] MEDS ORDERED: CEFAZOLIN SOD 2 GM/D5W 50ML 50 ML IV ONE (05:55)
[2019-01-31] MEDS ORDERED: DEXAMETHASONE SOD PHOS 10 MG/1 ML VIAL ONE (05:55)
[2019-01-31] MEDS ORDERED: CELECOXIB 200 MG CAP ONE (05:55)
[2019-01-31] MEDS ORDERED: GABAPENTIN 300 MG CAP ONE (05:55)
[2019-01-31] MEDS ORDERED: TRANEXAMIC ACID 1,000 MG/10 ML ML ONE (06:49)
[2019-01-31] MEDS ORDERED: BACITRACIN 50,000 UNIT VIAL ONE (06:49)
[2019-01-31] MEDS ORDERED: SODIUM CHLORIDE 0.9% 500ML 500 ML ONE (06:49)
[2019-01-31] MEDS ORDERED: VANCOMYCIN HCL 1,000 MG ONE (06:49)
--- NOTE | 2019-01-31 07:10 | NUR ---
SPIRITUAL CARE - Pre-Surgery Assessment: Pt in bed. Pt reported supportive attention from family and friends. Intervention: I provided pastoral presence, hospitality, and sympathetic listening. I acquainted pt with availability of full fashioned garment knitter while hospitalized. Outcome: Pt expressed appreciation for visit. No need for follow up indicated at this time. [facility] Department O: [phone] Pager: [phone] ([phone] number calling from)
[2019-01-31] MEDS ORDERED: BUPIVACAINE 7.5MG/ML /DEXTROSE 82.5MG/ML 2 ML AMP INJ ONE (07:28)
[2019-01-31] MEDS ORDERED: ROPIVACAINE 246.25 MG, EPINEPHRINE HCL 1:1000 1ML 0.5 MG, CLONIDINE HCL 0.08 MG, KETORO... INJ ONE ×5 (07:30)
[2019-01-31] MEDS: SODIUM CHLORIDE 0.9% 1000ML 1,000 ML IV SCH ×2 (10:21→20:21)
[2019-01-31] MEDS ORDERED: HYDROCODONE/APAP 5MG-325MG TAB PO PRN (10:30)
[2019-01-31] MEDS ORDERED: ONDANSETRON HCL INJ 2MG/ML 2ML 2 MG/ML VIAL IV PRN (10:30)
[2019-01-31] MEDS ORDERED: ACETAMINOPHEN 650 MG SUPP PR PRN (10:30)
[2019-01-31] MEDS ORDERED: KETOROLAC TROMETHAMINE 30 MG/ML VIAL IV PRN (10:30)
[2019-01-31] MEDS ORDERED: DIPHENHYDRAMINE HCL INJ 50 MG/ML VIAL IM/IV PRN (10:30)
[2019-01-31] MEDS ORDERED: PROMETHAZINE HCL (IM) 25 MG/ML VIAL IM PRN (10:30)
[2019-01-31] MEDS ORDERED: DOCUSATE SODIUM 100 MG CAP PO PRN (10:30)
--- NOTE | 2019-01-31 12:30 | Diagnostic Imaging Report ---
Exam: Pelvis single frontal view History: Postop right hip replacement Comparison: None. Findings: See impression Impression: 1. Status post total right hip replacement with intact and appropriately positioned acetabular and femoral components. No periprosthetic displaced fracture. Skin clair and subcutaneous gas partially visualized. Signed by: Dr. Rambo Parsons M.D. on 01/31/2019 12:26 PM
[2019-01-31 12:45] VITALS: BP 104/55
[2019-01-31] MEDS: ACETAMINOPHEN 1000 MG/100 ML IV SCH ×2 (13:14→17:29)
[2019-01-31] MEDS ORDERED: PROPOFOL IV EMULSION 10 MG/ML 20 ML VIAL ONE (14:37)
[2019-01-31] MEDS ORDERED: EPHEDRINE SULFATE INJ 50 MG/10 ML SYR ONE (14:37)
[2019-01-31] MEDS ORDERED: PHENYLEPHRINE HCL 1% 10 MG/ML VIAL ONE (14:37)
[2019-01-31] MEDS ORDERED: ONDANSETRON HCL INJ 2MG/ML 2ML 2 MG/ML VIAL ONE (14:37)
[2019-01-31] MEDS ORDERED: ACETAMINOPHEN 1000 MG/100 ML IV ONE (14:37)
[2019-01-31] MEDS ORDERED: LIDOCAINE HCL 2% LOCAL INJ 5 ML SDV VIAL INJ ONE (14:37)
[2019-01-31] MEDS: CEFAZOLIN SOD 1 GM/NS 50ML 50 ML IV SCH (16:28)
[2019-01-31] MEDS: ASPIRIN 325 MG TAB PO SCH (16:28)
[2019-01-31] MEDS: CELECOXIB 200 MG CAP PO SCH (16:28)
[2019-01-31 16:58] VITALS: BP 107/54
[2019-01-31] MEDS ORDERED: DEXTROSE 50% SYRINGE 50 ML IV PRN (17:00)
[2019-01-31] MEDS ORDERED: CELECOXIB 100 MG CAP PO SCH (17:00)
[2019-01-31] MEDS: INSULIN LISPRO 100 UNIT/1 ML 3ML VIAL SQ SCH (17:29)
[2019-01-31] MEDS: GLIMEPIRIDE 2 MG TAB PO SCH (17:29)
[2019-01-31] MEDS ORDERED: MIDAZOLAM HCL 2 MG/2 ML VIAL ONE (17:32)
[2019-01-31] MEDS ORDERED: FENTANYL CITRATE/PF 100MCG/2 ML INJ ONE (17:32)
[2019-01-31] MEDS: HYDROCODONE/APAP 7.5MG-325MG 1 EA TAB PO PRN (18:55)
--- NOTE | 2019-01-31 19:20 | NUR ---
BEDSIDE SHIFT REPORT RECEIVED FROM Virgilio MEDLEY RN. PT IS AAOX3, RR EVEN AND NON-LABORED, ON RA. NO S/SX OF DISTRESS NOTED. DRESSING TO (R) HIP NOTED TO BE CDI. LEFT PT LAYING SEMI FOWLERS IN BED, BED IN LOW CHAYO POSITION, SIDE RAILS UPX2, CALL LIGHT AND PHONE WITHIN REACH.
[2019-01-31 20:00] VITALS: BP 135/65
[2019-01-31] MEDS ORDERED: ZOLPIDEM TARTRATE 5 MG TAB PO PRN (21:00)
[2019-01-31] MEDS: GABAPENTIN 300 MG CAP PO SCH (21:35)
[2019-01-31 23:10] VITALS: BP 135/65
[2019-02-01] VITALS: BP 107/58
[2019-02-01] MEDS: ACETAMINOPHEN 1000 MG/100 ML IV SCH ×2 (00:10→00:56)
[2019-02-01] MEDS: CEFAZOLIN SOD 1 GM/NS 50ML 50 ML IV SCH ×2 (00:56→08:40)
[2019-02-01 04:00] VITALS: BP 119/70
[2019-02-01] MEDS: HYDROCODONE/APAP 7.5MG-325MG 1 EA TAB PO PRN ×3 (04:07→13:35)
[2019-02-01] MEDS: SODIUM CHLORIDE 0.9% 1000ML 1,000 ML IV SCH (05:16)
[2019-02-01] MEDS: INSULIN LISPRO 100 UNIT/1 ML 3ML VIAL SQ SCH ×2 (07:30→11:30)
--- NOTE | 2019-02-01 08:30 | NUR ---
CASE MANAGEMENT ASSESSMENT Art Tracer to bedside to discuss plan of care with patient/family. CM/SW role and care transitions discussed. Anticipated discharge plan discussed along with duration of care. CM/SW discussed patients right to make decisions in care. CM/SW work hours given. Patient lives: alone, but his brothers are available to help Admit/Transfer: from PACU Hospital/ER visits since last admit: was hospitalized 11/22-11/24; no ER visits since then POA/Emergency contact: brothers Geovanny Giles [phone] and Rambo Gutierrez [phone] Current/Previous Home Health: none PCP/Follow-up Care: will follow up with Dr. Rangel as instructed Current/Previous DME: [facility] hernandez, danny Medications (referring to index hospitalization or the first time you were in the hospital) a. Were changes made in your medications when you were in the hospital on [date of index hospitalization]? n/a b. Did you understand the changes? n/a c. Were you able to obtain your new medications right away? n/a d. Were you able to take your medications like the doctor wanted you to? n/a e. Did the hospital give you an accurate, easy to understand list of medications when you left? n/a Scale of 1-10 how comfortable does patient feel with disease management in outpatient settin Other Services: none Employment Status: employed at [employer] Areas of Concerns: recent surgery Referral Needs: home health; Home health referral was faxed by Dr. Rangel's office to [facility]. Choice letter was signed and placed in chart. Copy to ptZaynab Ohara with [facility] will be by to see pt. Stated they will see pt tomorrow. Operative note and PT note faxed to [phone] / P [phone]. Education Needs: post operative instructions IMM/FAIRCHILD given and signed (if applicable): n/a Goal for discharge: home with home health CM/SW left business card at the bedside with contact information. Name and number was also written on the patients whiteboard. Patient verbalized understanding of discussion. CM will follow-up with ongoing discharge and transition of care needs.
[2019-02-01] MEDS: GABAPENTIN 300 MG CAP PO SCH (08:40)
[2019-02-01] MEDS: GLIMEPIRIDE 2 MG TAB PO SCH (08:40)
[2019-02-01] MEDS: CELECOXIB 200 MG CAP PO SCH (08:40)
[2019-02-01] MEDS: ASPIRIN 325 MG TAB PO SCH (08:40)
[2019-02-01 09:27] VITALS: BP 122/87
[2019-02-01] MEDS ORDERED: ACETAMINOPHEN 1000 MG/100 ML IV PRN (10:30)
--- NOTE | 2019-02-01 11:00 | Operative Report ---
DATE OF PROCEDURE: 01/31/2019 SURGEON: Rambo Rangel MD BUNDLING MACHINE OPERATOR: Ubaldo Garcia, certified PA. PREOPERATIVE DIAGNOSIS: Osteoarthritis, right hip. POSTOPERATIVE DIAGNOSIS: Osteoarthritis, right hip. PROCEDURE: Right total hip arthroplasty. INDICATIONS: The patient is a 53-year-old gentleman, who has clinic signs and symptoms consistent with severe arthritis in his right hip. He has failed conservative management and would like to proceed with a right total hip replacement. The risks and benefits of the procedure have been explained. The added challenges due to his body mass index have been discussed. He states he understands and wishes to proceed. PROCEDURE IN DETAIL: The patient was brought to the operating room and given a spinal anesthetic. This was supplemented with a MAC anesthetic. He was positioned in the left lateral decubitus position. His right hip was prepped and draped in a sterile manner. A preoperative time-out was performed. A posterior approach was made to the right hip. Care was taken to avoid injury to the sciatic nerve. Hemostasis was obtained with electrocautery. A deep self-retaining Charnley retractor was placed. The posterior capsule was exposed and the short external rotators were released. A capsulotomy was performed and the hip was dislocated. An oscillating saw was used to resect the femoral head. Complete loss of articular cartilage was noted. Soft tissue releases were performed to allow positioning of acetabular retractors and provide appropriate visualization of the socket. The socket was sequentially reamed to 57 mm. This accomplished bleeding hemispherical cancellous bone. Throughout the case, the hip was thoroughly irrigated on a number of occasions using a shower tip pulsatile lavage and a spray bottle with a mixture of polymyxin and vancomycin spray. A Neftaly Biomet 58 mm outer diameter OsseoTi socket was then impacted into place. Excellent bone quality and secure fixation were encountered. Fixation was augmented with a single 25 mm cancellous screw. A highly cross-linked polyethylene liner with a 36 mm inner diameter was then seated into place. Care was taken to make sure that there was no evidence of soft tissue interposition. The socket was packed with moistly soaked lap sponge and attention was directed toward the proximal femur. A box cutting osteotome and taper pin reamer were used to establish entry to the femoral canal. The Neftaly Biomet taper lock broaches were then impacted into place. A size 15 stem provided appropriate canal fill and stability. A trial reduction was performed. I elected to use a +3 mm head. The hip was put through a full arc of motion and noted to have excellent stability and jew of limb length. Anterior osteophytes had been excised with a curved osteotome prior to completing the socket. The trial implants were then removed. The hip was further irrigated with a shower tip pulsatile lavage. The implants were seated and a final reduction was performed. The hip was put through a full arc of motion once again. There was good stability. A 100 mL premixed pericapsular injection was placed into the surrounding soft tissue. The posterior capsule was repaired with #2 Ethibond. The tensor fascia and gluteal fascia were also closed with #2 Ethibond. The skin was closed with subcuticular Vicryl and clair. A sterile bandage was applied. He was returned to the supine position and transported to the recovery room in stable condition. Blood loss was approximately 100 mL. All needle and sponge counts were correct. Rambo Rangel MD DR/URIEL /[id number]
[2019-02-01] MEDS ORDERED: ASPIRIN325 MG PO (13:05)
--- NOTE | 2019-02-01 13:44 | NUR ---
DISCHARGE INSTRUCTIONS AND PRESCRIPTION GIVEN. PT VERBALIZED UNDERSTANDING. PT HAS OWN WALKER AND STATES HE HAS A BSC AT HOME. LEFT HAND IV D/C AND PRESSURE DRESSING APPLIED. PT AWAITING RIDE HOME.
== END 2019-02-01 13:54 | disposition home health service (06) | DRG 470 ==
LOC: OR 05:30 → PACU V 10:22 → MED/SURG 12:20
PROVIDERS: ADMIT Specialist; ATTEND Specialist
PROC: 0SR90JZ Replacement of Right Hip Joint with Synthetic Substitute, Open Approach (ICD-10-PCS; principal; 2019-01-31 08:30)
DX: M16.11 Unilateral primary osteoarthritis, right hip (principal); E11.9 Type 2 diabetes mellitus without complications; I10 Essential (primary) hypertension; Z79.84 Long term (current) use of oral hypoglycemic drugs; K21.9 Gastro-esophageal reflux disease without esophagitis; E78.5 Hyperlipidemia, unspecified; E66.9 Obesity, unspecified; Z68.37 Body mass index [BMI] 37.0-37.9, adult
CPT/HCPCS: 36415; 72170; 80048; 82948; 85014; 85018; 85025; 86850; 86900; 86920; C1713; J0171; J0690; J1100; J1885; J2001; J2250; J2370; J2405; J2795; J3370; J7030; J7040